=== PATIENT | female | born 1945 | race Caucasian/White ===

== ENCOUNTER → 2017-09-04 | Outpatient (CLI) | payer MEDICARE ==
[2017-09-04 10:04] LABS: Non-African American GFR(MDRD) >60 (>60 ml/min/1.73 sqM)
--- NOTE | 2017-09-04 11:06 | US ---
EXAMINATION TYPE: US kidneys/renal and bladder DATE OF EXAM: 09/04/2017 COMPARISON: US 09/12/2016 CLINICAL HISTORY: 72-year-old female cyst on kidney N28.1. Patient stated had pelvic exoneration in due to cervical cancer, thus has urostomy and sigmoidostomy and pelvic reconstruction . TECHNIQUE: Multiple sonographic images of the kidneys and bladder are obtained. FINDINGS: Right Kidney: 10.3 x 4.8 x 4.1 cm with mild hydronephrosis. Left Kidney: 6.9 x 4.2 x 4.5 cm. Previously measured 9.6 cm. Similar moderate hydronephrosis with up per pole cyst = 0.6 x 0.9 x 0.8cm and mid pole cortical cyst = 2.5 x 2.0 x 2.3cm; this kidney is smal l in size with cortical thinning. Bladder: surgically removed. Post Void Residual Volume: Not applicable. IMPRESSION: 1. Continued moderate left hydronephrosis with chronic medical renal disease and interval decrease in size of the left kidney probably on the basis of chronic hydronephrosis. 2 cysts are present measuri ng up to 2.5 cm. 2. Unchanged mild right-sided hydronephrosis. 3. Status post cystectomy.
== END ==
LOC: RADUSWWP 08:42
PROVIDERS: ATTEND Urology
DX: N18.9 Chronic kidney disease, unspecified (principal); N13.30 Unspecified hydronephrosis; Z90.6 Acquired absence of other parts of urinary tract
CPT/HCPCS: 36415; 76770; 82565

== ENCOUNTER → 2018-09-09 | Outpatient (CLI) | payer MEDICARE ==
--- NOTE | 2018-09-09 15:15 | US ---
EXAMINATION TYPE: US kidneys/renal and bladder DATE OF EXAM: 09/09/2018 COMPARISON: US 09/04/2017 CLINICAL HISTORY: N13.30 hydronephrosis N28.1 Left Renal Cyst. EXAM MEASUREMENTS: Right Kidney: 10.7 x 4.2 x 5.1 cm Left Kidney: 6.1 x 3.4 x 3.3 cm Right Kidney: Mild hydronephrosis. Left Kidney: Difficult to visualize normal renal tissue. Measuring small. Cystic area visualized uppe r pole measuring 1.3 x 0.9 x 1.1 cm Bladder: Surgically absent Bilateral Jets seen: No, see above IMPRESSION: Mild right-sided hydronephrosis is again seen, cystic focus associated with the left kidney is stable , left kidney not well seen
== END | disposition home or self-care (01) ==
LOC: RADUSWWP 14:10
DX: N13.30 Unspecified hydronephrosis (principal); N28.1 Cyst of kidney, acquired; Z88.0 Allergy status to penicillin; Z88.1 Allergy status to other antibiotic agents; Z88.2 Allergy status to sulfonamides; Z88.5 Allergy status to narcotic agent; Z88.8 Allergy status to other drugs, medicaments and biological substances
CPT/HCPCS: 76770

== ENCOUNTER → 2020-05-19 | Outpatient (CLI) | payer MEDICARE ==
--- NOTE | 2020-05-19 14:30 | US ---
EXAMINATION TYPE: US kidneys/renal and bladder DATE OF EXAM: 05/19/2020 COMPARISON: Renal ultrasound September 09, 2018 CLINICAL HISTORY: R93.4 History of hydronephrosis. H/O hydro EXAM MEASUREMENTS: Right Kidney: 10.7 x 4.0 x 4.6 cm Left Kidney: 7.4 x 3.2 x 3.6 cm Right Kidney: Dilated renal pelvis= 0.8 cm Left Kidney: Atrophic with hydro, cyst lateral= 1.5 x 0.8 x 1.1 Bladder: Surgically absent No solid or cystic masses are identified on images saved. The urinary bladder is surgically absent. IMPRESSION: Moderate to severe left-sided hydronephrosis more prominent from prior. Persistent mild t o moderate right-sided hydronephrosis similar to prior. Consider further workup.
== END | disposition home or self-care (01) ==
LOC: RADUSWWP 13:32
PROVIDERS: ATTEND Urology
DX: N13.30 Unspecified hydronephrosis (principal)
CPT/HCPCS: 76770; 82565

== ENCOUNTER → 2022-03-28 | Outpatient (CLI) | payer MEDICARE ==
--- NOTE | 2022-03-28 14:59 | US ---
EXAMINATION TYPE: US kidneys/renal and bladder DATE OF EXAM: 03/28/2022 COMPARISON: US 2020 CLINICAL HISTORY: N13.30 Hydronephrosis. History of hydronephrosis, atrophic left kidney, bladder estrellita gically removed EXAM MEASUREMENTS: Right Kidney: 10.7 x 4.2 x 4.4 cm Left Kidney: 6.2 x 2.7 x 2.8 cm Right Kidney: dilated renal pelvis is mild and shows a stable appearance Left Kidney: atrophic, not well seen Bladder: surgically absent IMPRESSION: There is interval development of poor visualization of the left kidney which may be atrophic
== END | disposition home or self-care (01) ==
LOC: RADUSWWP 13:28
PROVIDERS: ATTEND Urology
DX: N13.30 Unspecified hydronephrosis (principal)
CPT/HCPCS: 76770

== ENCOUNTER → 2023-05-14 | Outpatient (CLI) | payer MEDICARE ==
--- NOTE | 2023-05-14 09:56 | US ---
EXAMINATION TYPE: US kidneys/renal and bladder DATE OF EXAM: 05/14/2023 COMPARISON: 03/28/2022 and priors. CLINICAL INDICATION: Female, 77 years old with history of N13.30 HYDRONEPHROSIS; Hx of hydronephrosis bladder removed 30 years ago due to cervical CA. EXAM MEASUREMENTS: Right Kidney: 10.3 x 3.0 x 4.9 cm Left Kidney: 5.1 x 1.6 x 1.5 cm Right Kidney: No hydronephrosis or masses seen Left Kidney: atrophic Bladder: removed. Bilateral Jets seen: no There is no evidence for right hydronephrosis at this point in time. No nephrolithiasis is seen. No masses are identified. The urinary bladder is surgically absent. IMPRESSION: 1. Surgically removed bladder. 2. Atrophic left kidney. 3. No evidence for right obstructive uropathy.
[2023-05-14 16:07] LABS: Blood Urea Nitrogen 25.4 mg/dL (9.0-27.0)
== END | disposition home or self-care (01) ==
LOC: RADUSWWP 08:34
PROVIDERS: ATTEND Urology
DX: N26.1 Atrophy of kidney (terminal) (principal); N13.1 Hydronephrosis with ureteral stricture, not elsewhere classified; Z85.41 Personal history of malignant neoplasm of cervix uteri
CPT/HCPCS: 76770; 82565; 84520